=== PATIENT | male | born 1970 | race Caucasian/White ===

== ENCOUNTER 2017-02-08 19:32 | Emergency (ER) | payer BC ==
[~2017-02-08] VITALS: Ht 177.8 cm; Wt 74.8 kg
--- NOTE | 2017-02-08 20:04 | Urgent Treatment Center Report ---
History of Present Issue Date/Time Seen by Provider 02/08/171954 Visit Reason Pt arrived:Walked Presenting Problem:PT STATES STEPPING OUT OF THE BACK OF HIS TRUCK AND ROLLING HIS LEFT ANKLE AT [employer]PROX 1600 TODAY Location if Accident:Home Onset of symptoms date/time:02/08/17 or onset unknown for: Have you (or family members/close friends) recently traveled outside the [place]? N If Yes, where/when: Have you had exposure to infectious disease within the past month? TB? Other? Specify: Here w/ c/o left ankle pain due to twisting ankle while stepping out of truck around 1600 today. Reports planted foot and immediately, ankle rolled "taking all my weight plus the tire I was holding". Since then, pain and swelling in lateral side of left ankle. hasn't taken or tried anything for symptoms. Worried about fracture. Denies N/T. Limited ROM lt ankle due to pain. Denies pain anywhere else. Source patient Exam Limitations clinical condition (pain) ALLERGIES Coded Allergies: Suarez (From STRAWBERRIES (FOOD/DRUG)) (ANAPHYLAXIS 02/08/17) strawberry (From STRAWBERRIES (FOOD/DRUG)) (ANAPHYLAXIS 02/08/17) Home Medications Reported Medications No Known Home Medications History Medical History General CAD? No Angina: No SD: No Hypertension? No Hyperlipidemia? No CHF? No DVT? No PE? No COPD? No Asthma? No Anemia? No GERD? No Gastric ulcers? No GI Bleed? No Hernia? No Thyroid Problems? No Hypothyroidism? No CVA? No Seizures? No Diabetes? No Renal Insuffiency? No UTI? No Stones? No BPH? No GB Disease: No Nephritic Syndrome? No Asplenia? No Hepatitis? No Sickle Cell Disease? No Arthritis? No Migraines? No Cataracts? No Glaucoma? No MRSA? No HIV? No TB? No Anxiety? No Depression? No Cancer? No More? No Immunization HX DT/Tetanus 1-4 Years Ago Surgical Hx Previous Surgery?Y ACL/MENISCUS R KNEE Social History Smoking Hx Smoker: Current Every Day Smoker Tobacco: Yes Type Cigarettes Alcohol Alcohol: No Review of Systems All Other Systems Reviewed and Negative Musculoskeletal see HPI Skin denies change in color, denies lesions Psychiatric/Neurological see HPI Physical Exam Vital Signs Vital Signs Date Time Temp Pulse Resp B/P Pulse O2 O2 Flow FiO2 Ox Delivery Rate 02/08 1941 98.1 85 18 123/85 99 General Appearance no apparent distress Respiratory Status No: respiratory distress. Cardiovascular no peripheral edema Peripheral Pulses Pulses normal Yes (pedal bilateral) Back gait abnormality (favoring left foot) Extremities normal range of motion (left knee), limited range of motion (left ankle and digits d/t pain), swelling (mild, left lateral malleous), tenderness left anterior ankle and lateral malleous Neurologic alert, no motor/sensory deficits Skin intact, normal color, warm/dry Medical Decision Making LABS/Meds/Orders Pt receiving controlled substance in ED? No Results/Orders Orders Procedure Date/time Status STABILIZE JOINT 02/09 2028 Active XRAY/CT/US XRAY/CT/US XRAY ankle XR interpretation by reviewed by me, discussed w/radiologist (read report) Xray Results no fracture seen Comment Called to review w/ ER MD, Dr. Chou. Changing shifts and prefers nightshift to review. Waiting on Dr. Miranda. Progress [facility] Progress Notes Date 02/08/17 Comment refused crutches. Departure Departure Time of Disposition 2025 Disposition DC Home or Self Care(routine) Clinical Impression Primary Impression: Left ankle sprain Qualifiers: Encounter type: initial encounter Involved ligament of ankle: unspecified ligament Qualified Code: S93.402A - Sprain of unspecified ligament of left ankle, initial encounter Condition STABLE Referrals NO REFERRAL Primary care IMMEDIATELY for new or worsening symptoms OR no noticeable improvement over the next 3-5 days. Patient Instructions DI for Ankle Sprain Additional Instructions * weight bearing as tolerated * Rest * ice 15-20 mins 3-4 times a day * Willie wrap for support and swelling unless in shower. Be sure not too tight but not too loose either * Elevate as discussed as much as possible to help reduce swelling and therefore , pain * Ibuprofen every 6 hours as needed for pain and inflammation. If you need something more, you can take tylenol every 4 hours as needed as long as your primary care provider has told you it is ok to take both. Follow up IMMEDIATELY for new or worsening symptoms OR no noticeable improvement over the next 3-5 days. Discharge Counseling Counseled pt/family regarding diagnosis, test results, medications/RX, home care, follow up needs Prescriptions Current Visit Scripts No Known Home Medications at 2023
--- NOTE | 2017-02-08 20:13 | RADIOLOGY REPORT PS360 ---
ANKLE-LT-3 VIEWS HISTORY: Pain and swelling ROLLED ANKLE ORDERING PHYSICIAN: KINGSLEY MUNSON APRN PATIENT AGE: 46 years COMPARISON: None FINDINGS: No fracture or dislocation. No lytic or blastic change. There is normal mineralization.. The joint spaces are well-preserved. No significant degenerative/arthritic changes. No erosive changes evident. IMPRESSION: Negative ankle, no acute finding
[2017-02-08 20:31] VITALS: BP 123/85
--- OUTSIDE RECORDS SUMMARY | 2017-02-14 08:36 | External Medical Summary Rpt ---
Demographics Preferred Language Faroese Marital Status Unknown Voodoo Affiliation Unknown Race Unknown Ethnic Group Unknown Author Author , Organization [employer] Address Unknown Phone Unavailable Purpose Continuity of Care Document - through 2016 Immunization No patient found.
--- OUTSIDE RECORDS SUMMARY | 2017-02-14 08:36 | External Medical Summary Rpt ---
Author Author [employer] Organization [employer] Address Unknown Phone Unavailable Purpose Continuity of Care Document - through 2016
--- OUTSIDE RECORDS SUMMARY | 2017-02-14 08:36 | External Medical Summary Rpt ---
Demographics Preferred Language Mongolian Marital Status Unknown Christian Affiliation Unknown Race Unknown Ethnic Group Unknown Author Author , Organization [employer] Address Unknown Phone Unavailable Purpose Continuity of Care Document - through 2016 Immunization No patient found.
== END 2017-02-08 20:33 | disposition home or self-care (01) ==
LOC: UTC 19:32
DX: S93.402A Sprain of unspecified ligament of left ankle, initial encounter (principal); X50.1XXA Overexertion from prolonged static or awkward postures, initial encounter; Y92.89 Other specified places as the place of occurrence of the external cause